=== PATIENT | male | born 1985 | race African-American/Black ===

== ENCOUNTER 2025-02-24 17:54 | Emergency (ER) | payer OTHER ==
[~2025-02-24] VITALS: Ht 157.5 cm; Wt 59.1 kg
[2025-02-24 18:12] VITALS: BP 147/87; PULSE 93; RESP 16; TEMP 98.2; O2SAT 98
== END 2025-02-24 18:59 | disposition home or self-care (01) ==
LOC: EMS 17:54
DX: F11.10 Opioid abuse, uncomplicated (principal); F12.90 Cannabis use, unspecified, uncomplicated; F17.210 Nicotine dependence, cigarettes, uncomplicated
CPT/HCPCS: 99283; Z7502